=== PATIENT | female | born 1965 | race American Indian/Alaskan Native ===

== ENCOUNTER 2017-10-21 15:04 | Emergency (ER) | payer OTHER ==
[2017-10-21 15:11] VITALS: BP 154/84
[2017-10-21 15:44] LABS: Basophils # (Auto) 0.1 K/mm3 (0.0-0.1); Basophils % (Auto) 0.7 % (0.0-1.8); Eosinophils # (Auto) 0.1 K/mm3 (0.0-0.4); Eosinophils % (Auto) 1.6 % (0.0-4.3); Hematocrit 38.9 % (30.3-42.9); Hemoglobin 12.8 gm/dl (10.1-14.3); Lymphocytes # (Auto) 2.9 K/mm3 (1.2-5.4); Lymphocytes % (Auto) 34.4 % (13.4-35.0); Mean Corpuscular HGB Conc 33 % (30-34); Mean Corpuscular Hemoglobin 30 pg (28-32); Mean Corpuscular Volume 90 fl (79-97); Monocytes # (Auto) 0.7 K/mm3 (0.0-0.8); Monocytes % (Auto) 7.9 % (0.0-7.3); Platelet Count 290 K/mm3 (140-440); Red Blood Count 4.31 M/mm3 (3.65-5.03); Red Cell Distribution Width 12.7 % (13.2-15.2)
[2017-10-21 15:45] LABS: BUN/Creatinine Ratio 13; Blood Urea Nitrogen 9 mg/dL (7-17); Calcium 9.3 mg/dL (8.4-10.2); Hemolysis Index 5
== END 2017-10-21 20:37 | disposition left against medical advice (07) ==
LOC: ED 15:04
DX: R07.9 Chest pain, unspecified (principal); Z53.21 Procedure and treatment not carried out due to patient leaving prior to being seen by health care provider
CPT/HCPCS: 36415; 80048; 84484; 85025; 93005; 93010

== ENCOUNTER 2019-06-24 09:11 | Emergency (ER) | payer OTHER ==
[2019-06-24 09:28] LABS: Basophils % (Auto) 0.6 % (0.0-1.8); Eosinophils # (Auto) 0.1 K/mm3 (0.0-0.4); Hematocrit 37.9 % (30.3-42.9); Hemoglobin 12.5 gm/dl (10.1-14.3); Lymphocytes # (Auto) 2.3 K/mm3 (1.2-5.4); Lymphocytes % (Auto) 30.2 % (13.4-35.0); Mean Corpuscular HGB Conc 33 % (30-34); Mean Corpuscular Volume 91 fl (79-97); Monocytes # (Auto) 0.5 K/mm3 (0.0-0.8); Monocytes % (Auto) 7.1 % (0.0-7.3); Platelet Count 291 K/mm3 (140-440); Red Blood Count 4.18 M/mm3 (3.65-5.03); Red Cell Distribution Width 13.1 % (13.2-15.2)
[2019-06-24 09:41] LABS: BUN/Creatinine Ratio 11; Blood Urea Nitrogen 8 mg/dL (7-17); Hemolysis Index 5
--- NOTE | 2019-06-24 09:50 | XRay Report ---
CHEST 1 VIEW INDICATION / CLINICAL INFORMATION: Chest Pain. COMPARISON: 04/27/2015 FINDINGS: SUPPORT DEVICES: None. HEART / MEDIASTINUM: No significant abnormality. LUNGS / PLEURA: No significant pulmonary or pleural abnormality. No pneumothorax. ADDITIONAL FINDINGS: No significant additional findings. IMPRESSION: No acute pulmonary or pleural abnormality. No change from 04/27/2015 Signer Name: David Patterson MD [employer] Signed: 06/24/2019 9:45 AM Workstation Name: [id number]
[2019-06-24] MEDS ORDERED: KETOROLAC 30 MG/1 ML INJ IV ONE (12:08)
[2019-06-24] MEDS ORDERED: FAMOTIDINE 20 MG/2 ML INJ IV ONE (12:08)
--- NOTE | 2019-06-24 13:03 | Emergency Department Report ---
ED Chest Pain HPI - General Chief Complaint: Chest Pain Stated Complaint: ELEVATED BP/HEADACHE Time Seen by Provider: 06/24/19 11:55 Source: patient, old records reviewed Mode of arrival: Ambulatory Limitations: No Limitations - History of Present Illness Initial Comments: 54-year-old female the past medical history hypertension, DVT, rheumatoid arthritis, and pulmonary embolism presents to the hospital with multiple complaints. Symptoms started last night with left-sided frontal headache. Patient went to sleep the headache seemed to improve but then worsened again when she got to work in the a.m. Patient took her blood pressure and it was elevated despite taking her a.m. meds. Patient also has been having intermittent left-sided chest tingling sensation also described as a pressure since light with mild shortness of breath. She also complains of pain to her right knee and right calf pain that feels different from her rheumatoid arthrit is pain. Patient is on prednisone for altered arthritis for only taking it as a "as needed" because she does not like the medicine makes her feel. She also is on ibuprofen. Sick has been recommended to control her symptoms but patient is worried about medication side effects. Patient's previous DVT/PE was in 2009 while on control and she is not currently on hormone therapy, denies recent travel, and is not currently on anticoagulants. Pt had a similar presentation here in 2014. Patient had a negative CTA chest, ct head, and stress test here in April 2015. She has not had more recent cardiac workup. PMD [facility] Severity scale (0 -10): 5 - Related Data Home Medications Medication Instructions Recorded Confirmed Last Taken Latanoprost 0.005% 1 drop OP QPM 04/28/15 04/28/15 04/27/15 Meloxicam [Mobic] 7.5 mg PO QDAY 04/28/15 04/28/15 04/27/15 Previous Rx's Medication Instructions Recorded Last Taken Type Azithromycin [Zithromax TAB] 500 mg PO QDAY #3 tablet 04/28/15 Unknown Rx HYDROcodone/APAP 5-325 [Goltry 1 each PO Q6HR PRN #14 tablet 06/24/19 Unknown Rx 5/325] Allergies Allergy/AdvReac Type Severity Reaction Status Date / Time No Known Allergies Allergy Verified 09/06/14 17:19 Heart Score - HEART Score History: Slightly suspicious EKG: Normal Age: 45-65 Risk factors: 1-2 risk factors Troponin: < normal limit HEART Score: 2 ED Review of Systems ROS: Stated complaint: ELEVATED BP/HEADACHE Other details as noted in HPI Comment: All other systems reviewed and negative ED Past Medical Hx - Past Medical History Previous Medical History?: Yes Hx Hypertension: Yes Hx Deep Vein Thrombosis: Yes Hx Pulmonary Embolism: Yes Additional medical history: glaucoma. cyst on liver - Surgical History Hx Cholecystectomy: Yes Additional Surgical History: L) knee surgery for torn miniscus. hysterectomy - Social History Smoking Status: Never Smoker Substance Use Type: None - Medications Home Medications: Home Medications Medication Instructions Recorded Confirmed Last Taken Type Azithromycin [Zithromax TAB] 500 mg PO QDAY #3 tablet 04/28/15 Unknown Rx Latanoprost 0.005% 1 drop OP QPM 04/28/15 04/28/15 04/27/15 History Meloxicam [Mobic] 7.5 mg PO QDAY 04/28/15 04/28/15 04/27/15 History HYDROcodone/APAP 5-325 [Goltry 1 each PO Q6HR PRN #14 tablet 06/24/19 Unknown Rx 5/325] ED Physical Exam - General Limitations: No Limitations - Other Other exam information: General: No acute distress Head: Atraumatic Eyes: normal appearance ENT: Moist mucous membranes Neck: Normal appearance, no midline tenderness, no nuncal rigidity Chest: Clear to auscultation bilaterally, chest wall nontender CV: Regular rate and rhythm Abdomen: Soft, normal bowel sounds, nontender, nondistended, no rebound or guarding Back: Normal inspection Extremity: Normal inspection, full range of motion, mild tenderness to right knee and calf without edema or leg asymmetry Neuro: Alert O x 3, no facial asymmetry, speech clear, no gross motor sensory deficit Psych: Appropriate behavior Skin: No rash ED Course Vital Signs 06/24/19 06/24/19 06/24/19 09:14 12:54 13:45 Temperature 98.1 F 98.5 F Pulse Rate 90 70 Respiratory 20 15 Rate Blood Pressure 178/80 152/79 Blood Pressure [Left] Blood Pressure 152/79 [Right] O2 Sat by Pulse 100 98 100 Oximetry 06/24/19 06/24/19 06/24/19 13:54 14:00 14:30 Temperature Pulse Rate 66 67 64 Respiratory 13 21 18 Rate Blood Pressure 160/88 152/89 Blood Pressure 153/87 [Left] Blood Pressure [Right] O2 Sat by Pulse 100 99 98 Oximetry 06/24/19 06/24/19 06/24/19 15:00 15:30 16:00 Temperature Pulse Rate 63 65 62 Respiratory 16 15 16 Rate Blood Pressure 148/87 137/89 148/85 Blood Pressure [Left] Blood Pressure [Right] O2 Sat by Pulse 99 100 100 Oximetry 06/24/19 16:30 Temperature Pulse Rate 69 Respiratory 15 Rate Blood Pressure 145/85 Blood Pressure [Left] Blood Pressure [Right] O2 Sat by Pulse 100 Oximetry GULSHAN score - Gulshan Score Age > 65: (0) No Aspirin use within the Past 7 Days: (0) No 3 or more CAD Risk Factors: (1) Yes 2 or more Angina events in past 24 hrs: (1) Yes Known CAD with more than 50% Stenosis: (0) No Elevated Cardiac Markers: (0) No ST Deviation Greater than 0.5mm: (0) No GULSHAN Score: 2 ED Medical Decision Making - Lab Data Result diagrams: 06/24/19 09:20 06/24/19 09:20 Lab Results 06/24/19 06/24/19 06/24/19 Range/Units 09:20 09:20 12:30 WBC 7.6 (4.5-11.0) K/mm3 RBC 4.18 (3.65-5.03) M/mm3 Hgb 12.5 (10.1-14.3) gm/dl Hct 37.9 (30.3-42.9) % MCV 91 (79-97) fl MCH 30 (28-32) pg MCHC 33 (30-34) % RDW 13.1 L (13.2-15.2) % Plt Count 291 (140-440) K/mm3 Lymph % (Auto) 30.2 (13.4-35.0) % [place] % (Auto) 7.1 (0.0-7.3) % Eos % (Auto) 1.0 (0.0-4.3) % Baso % (Auto) 0.6 (0.0-1.8) % Lymph # 2.3 (1.2-5.4) K/mm3 [place] # 0.5 (0.0-0.8) K/mm3 Eos # 0.1 (0.0-0.4) K/mm3 Baso # 0.0 (0.0-0.1) K/mm3 Seg Neutrophils % 61.1 (40.0-70.0) % Seg Neutrophils # 4.6 (1.8-7.7) K/mm3 Sodium 143 (137-145) mmol/L Potassium 3.9 (3.6-5.0) mmol/L Chloride 108.3 H (98-107) mmol/L Carbon Dioxide 22 (22-30) mmol/L Anion Gap 17 mmol/L BUN 8 (7-17) mg/dL Creatinine 0.7 (0.7-1.2) mg/dL Estimated GFR > 60 ml/min BUN/Creatinine Ratio 11 % Glucose 123 H (65-100) mg/dL Calcium 9.0 (8.4-10.2) mg/dL Troponin T < 0.010 < 0.010 (0.00-0.029) ng/mL 06/24/19 Range/Units 15:14 WBC (4.5-11.0) K/mm3 RBC (3.65-5.03) M/mm3 Hgb (10.1-14.3) gm/dl Hct (30.3-42.9) % MCV (79-97) fl MCH (28-32) pg MCHC (30-34) % RDW (13.2-15.2) % Plt Count (140-440) K/mm3 Lymph % (Auto) (13.4-35.0) % [place] % (Auto) (0.0-7.3) % Eos % (Auto) (0.0-4.3) % Baso % (Auto) (0.0-1.8) % Lymph # (1.2-5.4) K/mm3 [place] # (0.0-0.8) K/mm3 Eos # (0.0-0.4) K/mm3 Baso # (0.0-0.1) K/mm3 Seg Neutrophils % (40.0-70.0) % Seg Neutrophils # (1.8-7.7) K/mm3 Sodium (137-145) mmol/L Potassium (3.6-5.0) mmol/L Chloride (98-107) mmol/L Carbon Dioxide (22-30) mmol/L Anion Gap mmol/L BUN (7-17) mg/dL Creatinine (0.7-1.2) mg/dL Estimated GFR ml/min BUN/Creatinine Ratio % Glucose (65-100) mg/dL Calcium (8.4-10.2) mg/dL Troponin T < 0.010 (0.00-0.029) ng/mL - EKG Data -: EKG Interpreted by Dc EKG shows normal: sinus rhythm, ST-T waves (no stemi) Rate: normal - EKG Data When compared to previous EKG there are: no significant change - Radiology Data Radiology results: report reviewed CHEST 1 VIEW INDICATION / CLINICAL INFORMATION: Chest Pain. COMPARISON: 04/27/2015 FINDINGS: SUPPORT DEVICES: None. HEART / MEDIASTINUM: No significant abnormality. LUNGS / PLEURA: No significant pulmonary or pleural abnormality. No pneumothorax. ADDITIONAL FINDINGS: No significant additional findings. IMPRESSION: No acute pulmonary or pleural abnormality. No change from 04/27/2015 CTA CHEST WITH IV CONTRAST INDICATION: Left chest pain, shortness of breath, history of pulmonary embolism. TECHNIQUE: Axial CT images were obtained through the chest after injection of 100 MLO Omnipaque 350 IV contrast. 3 plane MIP reconstructions were produced. All CT scans at this location are performed using CT dose reduction for ALARA by means of automated exposure control. COMPARISON: One view of the chest from earlier today. FINDINGS: PULMONARY ARTERIES: There is good opacification of the pulmonary arteries without distinct thromboemboli. AORTA AND ARTERIES: No acute abnormality. MEDIASTINUM: A noncalcified left thyroid nodule measures 1.9 x 1.5 cm. The trachea and main bronchi are patent and normal in caliber. No mass or lymphadenopathy is seen. The heart is normal in size without a significant pericardial effusion. LUNGS: Mild dependent atelectasis is seen bilaterally. The lungs are otherwise clear. No pneumothorax or pleural effusion. ADDITIONAL FINDINGS: None. UPPER ABDOMEN: No acute abnormality. A lateral segment left hepatic lobe cyst measures 2 cm. No additional significant abnormality. BONES: Mild degenerative changes are seen along the spine. No acute abnormality. IMPRESSION: 1. No CT evidence for pulmonary embolism. 2. Left thyroid nodule measuring 1.9 x 1.5 cm. Please see the below recommendation. 3. Additional findings as above. Nonpalpable nodules detected on US or other anatomic imaging studies are termed incidentally disco karen nodules or incidentalomas. Nonpalpable nodules have the same risk of malignancy as palpable nodules with the same size. Generally, only nodules >1 cm should be evaluated, since they have a greater potential to be clinically significant cancers. (AMEYA, 2009). Follow up for incidental thyroid nodules <1 cm is not recommended. In patients <35 years with an incidental thyroid nodule detected on CT, MRI, or extrathyroidal ultrasound, dedicated thyroid ultrasound is recommended if the nodule is 1 cm, has no suspicious imaging features, and if the patient has normal life expectancy. In patients 35 years with an incidental thyroid nodule detected on CT, MRI, or extrathyroidal ultrasound, dedicated thyroid ultrasound is recommended if the nodule is 1.5 cm, has no suspicious imaging features, and if the patient has normal life expectancy DUPLEX DOPPLER LOWER EXTREMITY VEINS, RIGHT INDICATION: right leg pain hx of dvt. TECHNIQUE: Duplex doppler imaging was performed through the veins of the right lower extremity using venous compression and other maneuvers. COMPARISON: No relevant prior imaging study available. FINDINGS: Right Common femoral vein: Negative. Right Superficial femoral vein: Negative. Right Popliteal vein: Negative. Right Calf veins: Negative. Additional findings: None.. IMPRESSION: No sonographic evidence for DVT in the right lower extremity. CT head/brain wo con INDICATION: Intermittent left-sided headache. TECHNIQUE: Routine CT head without contrast. All CT scans at this location are performed using CT dose reduction for ALARA by means of automated exposure control. COMPARISON: Previous head CT on 04/28/2015. FINDINGS: BRAIN / INTRACRANIAL CONTENTS: No acute hemorrhage, mass effect, midline shift, or hydrocephalus. No appreciable acute large territorial or lacunar infarct. No chronic infarct or focal atrophy. Normal brain volume and ventricular/sulcal size for age. Mild hyperostosis frontalis noted. ORBITS: No significant abnormality of visualized orbits. SINUSES / MASTOIDS: No significant abnormality of visualized sinuses and mastoid air cells. ADDITIONAL FINDINGS: None. IMPRESSION: 1. No acute intracranial abnormality. No adverse change from the prior exam. - Medical Decision Making ekg normal cp typical and one of many complaints. Patient has troponin negative 3, CT angiogram negative for PE with incidental thyroid nodule, CT head unremarkable and blood pressure improved during ED stay without any additional meds been provided. Patient received Toradol, morphine 4mg, htn a small dose of dilaudid. Patient be discharged home to follow up with her doctor and continue her current medications as prescribed. Heart score 2 and outpt f/u provided (chest pain referral) - Differential Diagnosis mi, unstable angina, pe, ich, dvt, atypical cp, htn emergency/urgency Critical Care Time: No Critical care attestation.: If time is entered above; I have spent that time in minutes in the direct care of this critically ill patient, excluding procedure time. ED Disposition Clinical Impression: Right leg pain, Chest pain, Headache, Rheumatoid arthritis Disposition: TO HOME OR SELFCARE Is pt being admited?: No Condition: Stable Instructions: Chest Pain (ED), Arthralgia (ED), Acute Headache (ED) Additional Instructions: Take the medication as prescribed. Follow-up with your doctor or doctor/clinic provided. Return if symptoms worsen as indicated by your discharge instructions. Prescriptions: HYDROcodone/APAP 5-325 [Goltry 5/325] 1 each PO Q6HR PRN #14 tablet PRN Reason: Pain Referrals: MICHELLE GONZALES MD [Primary Care Provider] - 3-5 Days [facility] [Provider Group] - 2-3 Days (Chest pain referral) Time of Disposition: 18:58
--- NOTE | 2019-06-24 13:39 | Vascular Lab Report ---
DUPLEX DOPPLER LOWER EXTREMITY VEINS, RIGHT INDICATION: right leg pain hx of dvt. TECHNIQUE: Duplex doppler imaging was performed through the veins of the right lower extremity using venous compression and other maneuvers. COMPARISON: No relevant prior imaging study available. FINDINGS: Right Common femoral vein: Negative. Right Superficial femoral vein: Negative. Right Popliteal vein: Negative. Right Calf veins: Negative. Additional findings: None.. IMPRESSION: No sonographic evidence for DVT in the right lower extremity. Signer Name: Thomas Francis Jr, MD Signed: 06/24/2019 1:34 PM Workstation Name: [id number]
--- NOTE | 2019-06-24 16:50 | Cat Scan Report ---
CT head/brain wo con INDICATION: Intermittent left-sided headache. TECHNIQUE: Routine CT head without contrast. All CT scans at this location are performed using CT dos e reduction for ALARA by means of automated exposure control. COMPARISON: Previous head CT on 04/28/2015. FINDINGS: BRAIN / INTRACRANIAL CONTENTS: No acute hemorrhage, mass effect, midline shift, or hydrocephalus. No appreciable acute large territorial or lacunar infarct. No chronic infarct or focal atrophy. Normal b rain volume and ventricular/sulcal size for age. Mild hyperostosis frontalis noted. ORBITS: No significant abnormality of visualized orbits. SINUSES / MASTOIDS: No significant abnormality of visualized sinuses and mastoid air cells. ADDITIONAL FINDINGS: None. IMPRESSION: 1. No acute intracranial abnormality. No adverse change from the prior exam. Signer Name: Sven Venegas MD Signed: 06/24/2019 4:46 PM Workstation Name: [id number]
--- NOTE | 2019-06-24 17:08 | Cat Scan Report ---
CTA CHEST WITH IV CONTRAST INDICATION: Left chest pain, shortness of breath, history of pulmonary embolism. TECHNIQUE: Axial CT images were obtained through the chest after injection of 100 MLO Omnipaque 350 IV contrast. 3 plane MIP reconstructions were produced. All CT scans at this location are performed using CT dose reduction for ALARA by means of automated exposure control. COMPARISON: One view of the chest from earlier today. FINDINGS: PULMONARY ARTERIES: There is good opacification of the pulmonary arteries without distinct thromboemb randi. AORTA AND ARTERIES: No acute abnormality. MEDIASTINUM: A noncalcified left thyroid nodule measures 1.9 x 1.5 cm. The trachea and main bronchi a re patent and normal in caliber. No mass or lymphadenopathy is seen. The heart is normal in size with out a significant pericardial effusion. LUNGS: Mild dependent atelectasis is seen bilaterally. The lungs are otherwise clear. No pneumothorax or pleural effusion. ADDITIONAL FINDINGS: None. UPPER ABDOMEN: No acute abnormality. A lateral segment left hepatic lobe cyst measures 2 cm. No addit ional significant abnormality. BONES: Mild degenerative changes are seen along the spine. No acute abnormality. IMPRESSION: 1. No CT evidence for pulmonary embolism. 2. Left thyroid nodule measuring 1.9 x 1.5 cm. Please see the below recommendation. 3. Additional findings as above. Nonpalpable nodules detected on US or other anatomic imaging studies are termed incidentally discover ed nodules or incidentalomas. Nonpalpable nodules have the same risk of malignancy as palpable nodule s with the same size. Generally, only nodules >1 cm should be evaluated, since they have a greater po tential to be clinically significant cancers. (AMEYA, 2009). Follow up for incidental thyroid nodules <1 cm is not recommended. In patients <35 years with an incidental thyroid nodule detected on CT, MRI, or extrathyroidal ultras ound, dedicated thyroid ultrasound is recommended if the nodule is 1 cm, has no suspicious imaging fe atures, and if the patient has normal life expectancy. In patients 35 years with an incidental thyroid nodule detected on CT, MRI, or extrathyroidal ultraso und, dedicated thyroid ultrasound is recommended if the nodule is 1.5 cm, has no suspicious imaging f eatures, and if the patient has normal life expectancy. Signer Name: Lalit Resendez MD Signed: 06/24/2019 5:04 PM Workstation Name: [email or web address]
[2019-06-24] MEDS ORDERED: ONDANSETRON 4 MG/2 ML INJ IV ONE (17:29)
[2019-06-24] MEDS ORDERED: MORPHINE 4 MG/1 ML INJ IV ONE (17:29)
[2019-06-24] MEDS ORDERED: HYDROmorphone 1 MG/1 ML INJ IV ONE (18:19)
[2019-06-24 19:39] VITALS: BP 107/56
== END 2019-06-24 19:30 | disposition home or self-care (01) ==
LOC: ED 09:11
DX: M79.604 Pain in right leg (principal); R07.89 Other chest pain; R51 Headache; M06.9 Rheumatoid arthritis, unspecified; I10 Essential (primary) hypertension; Z86.718 Personal history of other venous thrombosis and embolism; Z86.711 Personal history of pulmonary embolism; Z90.49 Acquired absence of other specified parts of digestive tract; Z90.710 Acquired absence of both cervix and uterus; Z79.899 Other long term (current) drug therapy
CPT/HCPCS: 36415; 70450; 71045; 71275; 80048; 84484; 85025; 93005; 93010; 93971; 96374; 96375; 99285; J1170; J1885; J2270; J2405; Q9967